=== PATIENT | male | born 1960 | race Caucasian/White ===

== ENCOUNTER → 2021-10-31 02:07 | Outpatient (CLI) | payer OTHER, SELFPAY ==
--- NOTE | 2021-10-31 10:09 | DI.RAD_ITS ---
Exam(s) XR THORACIC SPINE COMPLETE EXAM: XR THORACIC SPINE COMPLETE CLINICAL HISTORY: MID BACK PAIN, [id number]. TECHNIQUE: 2D digital imaging was performed. COMPARISON: No exams were available for comparison FINDINGS: 3 views There is no evidence of compression fracture nor listhesis. No significant scoliosis. No prominent disc space narrowing but there are multilevel right-sided osteophytes in the mid-lower thoracic spina l column. There is no abnormal widening of the paraspinal lines. No osseous lesions IMPRESSION: Degenerative changes as described above. No scoliosis. No fractures evident. DATA REPOSITORY: RADIATION DOSE DELIVERED:
--- NOTE | 2021-10-31 10:10 | DI.RAD_ITS ---
Exam(s) XR LUMBAR SPINE COMPLETE EXAM: XR LUMBAR SPINE COMPLETE CLINICAL HISTORY: LOW BACK PAIN, [id number]. TECHNIQUE: 2D digital imaging was performed. COMPARISON: No exams were available for comparison FINDINGS: Five views No evidence of fracture. There is disc space narrowing at L1-2 and L2-3 levels. Mild retrolisthesis of L2 upon L3 noted. Disc space at L5-S1 also exhibits mild narrowing. L3-4 and L4-5 level exhibit normal this height. No scoliosis. Some bile degenerative changes in the facet joints noted. SI joints unremarkable. IMPRESSION: Disc space narrowing at multiple levels as described above. If clinically indicated follow-up MRI ca n be performed DATA REPOSITORY: RADIATION DOSE DELIVERED:
== END ==
PROVIDERS: Visit Provider Occupational Therapist
DX: M47.814 Spondylosis without myelopathy or radiculopathy, thoracic region (principal); M48.07 Spinal stenosis, lumbosacral region
CPT/HCPCS: 72072; 72110